=== PATIENT | female | born 1970 | race Two or more races ===

== ENCOUNTER 2018-03-20 09:22 | Outpatient (CLI) | payer OTHER | END 2018-03-20 09:33 | disposition home or self-care (01) | LOC: RAD 501 09:22 | DX: J45.41 Moderate persistent asthma with (acute) exacerbation (principal) ==

== ENCOUNTER 2018-06-22 14:15 | Emergency (ER) | payer OTHER ==
[~2018-06-22] VITALS: Ht 165.1 cm; Wt 54.4 kg
== END 2018-06-22 18:48 | disposition home or self-care (01) ==
LOC: ER 14:15
DX: T78.1XXA Other adverse food reactions, not elsewhere classified, initial encounter (principal); L53.8 Other specified erythematous conditions

== ENCOUNTER 2022-04-01 11:15 | Outpatient (CLI) | payer OTHER | END 2022-04-01 11:17 | disposition home or self-care (01) | LOC: RAD 11:15 | PROVIDERS: ATTEND Physical Medicine & Rehabilitation Hospice and Palliative Medicine | DX: M54.50 Low back pain, unspecified (principal); M43.10 Spondylolisthesis, site unspecified ==